=== PATIENT | male | born 2000 | race Two or more races ===

== ENCOUNTER 2025-06-04 20:43 | Emergency (ER) | payer OTHER ==
[~2025-06-04] VITALS: Ht 175.3 cm; Wt 65.8 kg
[2025-06-04] MEDS ORDERED: TRAMADOL HCL 50 MG TABLET PO ONE (22:30)
[2025-06-04] MEDS ORDERED: NORFLEX100MG PO (23:11)
== END 2025-06-04 23:40 | disposition home or self-care (01) ==
LOC: ER 20:43
DX: R51.9 Headache, unspecified (principal); M54.50 Low back pain, unspecified; M79.602 Pain in left arm; M54.2 Cervicalgia; Z91.013 Allergy to seafood; J45.909 Unspecified asthma, uncomplicated